=== PATIENT | female | born 1985 | race American Indian/Alaskan Native ===

== ENCOUNTER 2019-08-31 05:29 | Day surgery (SDC) | payer BC, MEDICAID ==
[2019-08-31] MEDS ORDERED: LACTATED RINGERS 1,000 ML IV SCH (06:00)
[2019-08-31] MEDS ORDERED: MIDAZOLAM 2 MG/2 ML INJ IV NR (06:00)
[2019-08-31] MEDS ORDERED: GABAPENTIN 300 MG CAP PO NR (06:00)
[2019-08-31] MEDS ORDERED: CELECOXIB 200 MG CAP PO NR (06:00)
[2019-08-31] MEDS ORDERED: MAGNESIUM OXIDE 400 MG TAB PO SCH (06:00)
--- NOTE | 2019-08-31 07:36 | Short Stay Summary ---
Short Stay Documentation Date of service: 08/31/19 Narrative H&P: 34y/o with undesired fertility. Patient is aware of other contraceptive options. She has elected for permanent sterilization. - History Principal diagnosis: Unwanted fertility Past Medical History: hypertension Past Surgical History: No surgical history Social history: single - Allergies and Medications Current Medications: Allergies No Known Allergies Allergy (Verified 08/24/19 12:45) Home Medications Medication Instructions Recorded Confirmed Last Taken Type No Known Home Medications [No 08/24/19 08/24/19 Unknown History Reported Home Medications] Active Medications Celecoxib (Celebrex) 200 mg PO PREOP NR Stop: 08/31/19 23:00 Gabapentin (Gabapentin) 600 mg PO PREOP NR Stop: 08/31/19 23:00 Lactated Ringer's (Lactated Ringers) 1,000 mls @ 100 mls/hr IV DIRECT SINA Stop: 08/31/19 23:59 Magnesium Oxide (Mag-Ox) 400 mg PO PREOP SINA Stop: 08/31/19 23:00 Midazolam HCl (Versed) 2 mg IV PREOP NR Stop: 08/31/19 23:00 - Physical exam General appearance: no acute distress Integumentary: no rash HEENT: Atraumatic Lungs: Clear to auscultation Breasts: deferred Heart: Regular rate Gastrointestinal: normal Female Genitourinary: deferred Rectal Exam: deferred Extremities: no ischemia Neurological: Normal gait - Brief post op/procedure progress note Date of procedure: 08/31/19 Pre-op diagnosis: Unwanted fertility Post-op diagnosis: same Procedure: Laparoscopic bilateral tubal ligation with Filshie clips Anesthesia: LAEXANDER Surgeon: DAWSON CASTAÑEDA Estimated blood loss: none Pathology: none Condition: stable - Hospital course Hospital course: The patient was admitted the day of surgery and underwent a laparoscopic tubal ligation with Filshie clips. Please see operative note for details of surgery. Her postoperative course was uneventful. - Disposition Condition at discharge: Good Disposition: [id number] TO HOME OR SELFCARE - Discharge Diagnoses (1) Unwanted fertility Status: Acute Short Stay Discharge Plan Activity: other (Pelvic rest for 1 week) Diet: regular Additional Instructions: Follow-up is not required Follow-up as needed Prescriptions: Ibuprofen [Motrin] 800 mg PO Q8HR PRN #60 tablet PRN Reason: Pain, Mild (1-3) HYDROcodone/APAP 5-325 [[place] 5/325] 1 each PO Q6HR PRN #20 tablet PRN Reason: Pain
--- NOTE | 2019-08-31 07:41 | Anesthesia Consultation ---
Anesthesia Consult and Med Hx Date of service: 08/31/19 - Airway Anesthetic Teeth Evaluation: Good ROM Head & Neck: Adequate Mental/Hyoid Distance: Adequate Mallampati Class: Class I Intubation Access Assessment: Good - Pulmonary Exam CTA: Yes - Cardiac Exam Cardiac Exam: RRR - Pre-Operative Health Status ASA Pre-Surgery Classification: ASA2 Proposed Anesthetic Plan: General - Pulmonary Hx Smoking: Yes (quit 1 yr ago) Hx Respiratory Symptoms: No - Cardiovascular System Hx Hypertension: Yes (w/ , now resolved.) - Central Nervous System CVA: No - Gastrointestinal Hx Gastroesophageal Reflux Disease: No - Endocrine Hx Renal Disease: No Hx Liver Disease: No Hx Insulin Dependent Diabetes: No Hx Non-Insulin Dependent Diabetes: No Hx Thyroid Disease: No - Other Systems Hx Obesity: No - Additional Comments Anesthesia Medical History Comments: No hx anesthetic complications.
--- NOTE | 2019-08-31 07:41 | Anesthesia Day of Surgery ---
Anesthesia Day of Surgery - Day of Surgery Patient Examined: Yes Patient H&P Reviewed: Yes Patient is NPO: Yes
[2019-08-31] MEDS ORDERED: BUPIVACAINE/PF (0.5%) 5 MG/1 ML 10 ML VIAL INFILTRATI ONE ×2 (07:42→09:11)
[2019-08-31] MEDS ORDERED: ROCURONIUM 50 MG/5 ML INJ IV ONE (08:01)
[2019-08-31] MEDS ORDERED: LIDOCAINE MPF (2%) 20 MG/1 ML VIAL 5 ML ONE (08:01)
[2019-08-31] MEDS ORDERED: HYDROmorphone 1 MG/1 ML INJ ONE (08:01)
[2019-08-31] MEDS ORDERED: propofoL 200 MG/20 ML VIAL IV ONE (08:01)
[2019-08-31] MEDS ORDERED: SUCCINYLCHOLINE CHLORIDE 200 MG/10 ML INJ MDV ONE (08:01)
[2019-08-31] MEDS ORDERED: SODIUM CHLORIDE 0.9% IRR 1,500 ML BOTTLE IR ONE (09:11)
[2019-08-31] MEDS ORDERED: KETOROLAC 30 MG/1 ML INJ ONE (09:16)
[2019-08-31] MEDS ORDERED: NEOSTIGMINE 10MG/10 ML INJ MDV ONE (09:16)
[2019-08-31] MEDS ORDERED: GLYCOPYRROLATE 0.4 MG/2 ML INJ ONE (09:16)
[2019-08-31] MEDS ORDERED: ONDANSETRON 4 MG/2 ML INJ ONE (09:16)
--- NOTE | 2019-08-31 09:39 | Operative Report ---
Operative Report Operative Report: Date of surgery: August 31, 2019 Preoperative diagnosis: Unwanted fertility Postoperative diagnosis: Same as above Procedure: Laparoscopic bilateral tubal ligation with Filshie clips Surgeon: Destiny Nichols M.D. Anesthesia: General endotracheal anesthesia Estimated blood loss: Minimal Findings: Normal tubes uterus and ovaries Indication: 34-year-old -0-2-2 with undesired fertility Procedure: The patient was taken to the operating room and given general endotracheal anesthesia without complication. The patient is prepped and draped in a normal sterile fashion. A bivalve speculum was placed in the patient's vagina and a single-tooth tenaculum was placed on the anterior lip of the cervix .A uterine acorn manipulator was placed, and the bivalve speculum was then removed. Attention was then turned to the patient's abdomen where a 5 mm infraumbilical skin incision was then made. A Veress needle was placed and peritoneal entry was verified water-filled syringe. Insufflation of the peritoneal cavity was performed with CO2 gas. A 5 mm trocar was placed and the laparoscope was then inserted. The patient was then placed in Trendelenburg. A 7 mm suprapubic skin incision was then made. Under direct visualization a 7 mm trocar was then placed. General survey of the patient's abdomen revealed normal uterus tubes and ovaries. The fallopian tube was then followed out to the fimbriated end. A Filshie clip was placed, on the ampullary portion of the tube. This was performed on the contralateral side as well. The 7 mm trocar was then removed. The pneumoperitoneum was then released. The 5 mm trocar laparoscope was then removed. The skin incisions were then closed with 4-0 Monocryl. The incisions were injected with quarter percent Marcaine. Dressings were applied to the incision. The vaginal instruments were then removed atraumatically. Then successfully extubated and taken to the recovery room. All sponge laps and needle counts were correct x2.
[2019-08-31] MEDS: HYDROmorphone 1 MG/1 ML INJ IV PRN ×2 (10:05→10:15)
[2019-08-31] MEDS ORDERED: HYDROcodone/ACETAMINOPHEN 5-325 MG TAB PO PRN (10:05)
[2019-08-31 13:55] VITALS: BP 138/68
--- NOTE | 2019-08-31 17:59 | Post Anesthesia Evaluation ---
- Post Anesthesia Evaluation Patient Participated: Yes Airway Patent: Yes Stable Respiratory Function: Yes Nausea/Vomiting: No Temp > 96.8F: Yes Pain Manageable: Yes Adequeate Hydration: Yes Anesthesia Complications: No
== END 2019-08-31 11:15 | disposition home or self-care (01) ==
LOC: OR 05:29
PROVIDERS: ATTEND Obstetrics & Gynecology
DX: Z30.2 Encounter for sterilization (principal); Z30.09 Encounter for other general counseling and advice on contraception; Z79.899 Other long term (current) drug therapy; Z87.891 Personal history of nicotine dependence; I10 Essential (primary) hypertension; Z72.89 Other problems related to lifestyle; Z98.890 Other specified postprocedural states
CPT/HCPCS: 58671; 81025; J0330; J1170; J1885; J2250; J2405; J2704; J2710; J7120